=== PATIENT | female | born 1970 | race Caucasian/White ===

== ENCOUNTER 2017-02-06 00:10 | Emergency (ER) | payer OTHER ==
[~2017-02-06] VITALS: Ht 160 cm; Wt 65.1 kg
[~2017-02-06 00:10] MED LIST: AMOXICILLIN500 M1 PO; FLEXERIL10 MG PO; GLIMEPIRIDE4 MG PO; GLUMETZA500 MG PO; HYDROCODON-ACE1 EAC7 PO; ILOTYCIN1 GM LEFT EYE; JANUVIA100 MG PO; MOTRIN600 MG PO; PERCOCET 5/31 TABLET PO; TORADOL10 MG PO
[2017-02-06 01:19] LABS: INTERNAL CONTROL VALID? YES
[2017-02-06 01:26] LABS: THC CANNABINOIDS NEGATIVE (50 ng/mL)
[2017-02-06 01:27] LABS: AMPHETAMINE NEGATIVE (500 ng/mL); BARBITURATES NEGATIVE (200 ng/mL); BENZODIAZEPINES NEGATIVE (150 ng/mL); COCAINE NEGATIVE (150 ng/mL); INTERNAL CONTROLS VALID? YES; METHADONE NEGATIVE (200 ng/mL); METHAMPHETAMINE NEGATIVE (500 ng/mL); OPIATES (MORPHINE) NEGATIVE (100 ng/mL); OXYCODONE PRESUMPTIVE POSITIVE (100 ng/mL); PHENCYCLIDINE NEGATIVE (25 ng/mL); PROPOXYPHENE NEGATIVE (300 ng/mL); TRICYCLIC ANTIDEPRESSANTS NEGATIVE (300 ng/mL)
[2017-02-06 01:45] LABS: ADD MIUA? YES
[2017-02-06 01:46] LABS: COLOR LT.RED ((YELLOW)); GLUCOSE (STRIP) 1000; KETONES NEGATIVE; LEUKOCYTES TRACE; NITRITE NEGATIVE; PROTEIN (STRIP) TRACE; UROBILINOGEN 0.2 MG/DL (0.2-1.0)
[2017-02-06 01:47] LABS: BILIRUBIN NEGATIVE; BLOOD LARGE
[2017-02-06 01:52] LABS: BACTERIA NONE SEEN /HPF; EPITHELIAL CELLS RARE /HPF; MUCUS NONE SEEN /LPF; RED BLOOD CELLS TNTC /HPF (0-5); UCUL ADDED? NO; WHITE BLOOD CELLS 0-5 /HPF (0-5)
[2017-02-06] MEDS ORDERED: PERCOCET 5/31 TABLET PO (02:14)
[2017-02-06] MEDS ORDERED: FLEXERIL5 MG PO (02:14)
[2017-02-06] MEDS ORDERED: PREDNISONE20 MG PO (02:15)
[2017-02-06 02:26] VITALS: BP 100/70
== END 2017-02-06 02:27 | disposition home or self-care (01) ==
LOC: EME 00:10
PROVIDERS: Emergency Medicine
DX: S33.5XXA Sprain of ligaments of lumbar spine, initial encounter (principal); M62.830 Muscle spasm of back; X50.0XXA Overexertion from strenuous movement or load, initial encounter; E11.9 Type 2 diabetes mellitus without complications; Z79.84 Long term (current) use of oral hypoglycemic drugs
CPT/HCPCS: 81003; 84703; 99281; 99284; J1100

== ENCOUNTER 2017-05-13 19:01 | Emergency (ER) | payer OTHER ==
[~2017-05-13] VITALS: Ht 157.5 cm; Wt 62.4 kg
[~2017-05-13 19:01] MED LIST changes: +FLEXERIL5 MG PO; +PREDNISONE20 MG PO
[2017-05-13 19:12] VITALS: BP 114/54
[2017-05-13] MEDS ORDERED: NORCO 5/3251 TABLET PO (19:29)
[2017-05-13] MEDS ORDERED: VALIUM5 MG PO (19:29)
[2017-05-13] MEDS ORDERED: MOTRIN800 MG PO (19:29)
[2017-05-13] MEDS ORDERED: LIDODERM 5% P1 PATCH TD (19:30)
== END 2017-05-13 19:54 | disposition home or self-care (01) ==
LOC: RME 19:01 → EME 19:01 → RME 19:54
DX: S39.012A Strain of muscle, fascia and tendon of lower back, initial encounter (principal); W18.40XA Slipping, tripping and stumbling without falling, unspecified, initial encounter; M54.41 Lumbago with sciatica, right side; M25.561 Pain in right knee; E11.9 Type 2 diabetes mellitus without complications; Z79.84 Long term (current) use of oral hypoglycemic drugs
CPT/HCPCS: 99281; 99284